=== PATIENT | male | born 1930 | race Caucasian/White ===

== ENCOUNTER 2016-12-21 12:01 | Emergency (ER) | payer MEDICARE ==
[2016-12-21 13:45] LABS: ALBUMIN 3.7 g/dL (3.4-4.8); BASOPHIL 0 % (0-2); CREATININE 5.6 mg/dL (0.7-1.2); EOSINOPHIL 0 % (0-7); GLOBULIN (CALCULATION) 3.1 g/dL (2.2-4.2); HCT 30.8 % (42.0-52.0); HGB 11.1 g/dl (13.2-18.0); LYMPHOCYTE 7.6 % (15-48); MAGNESIUM 3.66 mg/dL (1.40-2.10); MCH 32.2 pg (25.0-31.0); MCV 89.3 fL (78.0-100.0); MONOCYTE 8.5 % (0-12); MPV 11.3 fL (6.0-9.5); NEUTROPHIL 83.9 % (41-80); PLT 307 K/uL (150-400); RBC 3.45 M/uL (4.70-6.00); RDW 14.3 % (11.5-14.0); TOTAL PROTEIN 6.8 g/dL (6.4-8.3)
[2016-12-21 13:46] LABS: WBC 20.2 K/uL (4.0-10.5)
[2016-12-21 13:47] LABS: LACTIC ACID 3.6 mmol/L (0.5-2.2)
[2016-12-21 13:55] LABS: POTASSIUM 6.6 mmol/L (3.5-5.1); PRO-BNP > 35000 pg/mL (0-450)
== END 2016-12-21 17:32 | disposition other institution (70) ==
LOC: FER 12:01
PROVIDERS: Internal Medicine
DX: A41.9 Sepsis, unspecified organism (principal); N17.9 Acute kidney failure, unspecified; R65.20 Severe sepsis without septic shock; I95.9 Hypotension, unspecified; I25.10 Atherosclerotic heart disease of native coronary artery without angina pectoris; J18.9 Pneumonia, unspecified organism; E87.5 Hyperkalemia; I10 Essential (primary) hypertension; E05.90 Thyrotoxicosis, unspecified without thyrotoxic crisis or storm; Z79.899 Other long term (current) drug therapy
CPT/HCPCS: 36415; 36600; 71010; 80053; 82803; 83605; 83735; 83880; 84484; 85025; 87040; 87070; 87205; 87450; 93005; 94640; J0456; J0610